=== PATIENT | female | born 1990 | race African-American/Black ===

== ENCOUNTER 2022-12-29 23:51 | Inpatient (IN) | payer SELFPAY ==
[~2022-12-29] VITALS: Ht 180 cm; Wt 110.0 kg
[2022-12-30] MEDS ORDERED: HYDRALAZINE 20MG/ML VIAL IV PRN ×3 (01:30)
[2022-12-30] MEDS ORDERED: MAGNESIUM 4 G PREMIX 100 ML IV ONE (01:30)
[2022-12-30] MEDS: LACTATED RINGERS 1,000 ML IV SCH ×3 (02:34→16:55)
[2022-12-30 02:38] LABS: HEMATOCRIT. 37.7 % (36.0-48.0); HEMOGLOBIN. 12.9 g/dL (12.0-16.0); MEAN CORPUSCULAR HEMOGLOBIN 31.9 pg (28.0-32.0); MEAN CORPUSCULAR VOLUME 93.2 fL (81.0-99.0); MEAN PLATELET VOLUME 9.1 fl (7.4-10.4); PLATELET 141 x1000/uL (130-400); RED BLOOD CELL COUNT 4.04 mill/uL (4.2-5.4); RED CELL DISTRIBUTION WIDTH 14.1 % (11.6-14.6)
[2022-12-30 02:47] LABS: CHLORIDE 113 mEq/L (98-107)
[2022-12-30 02:58] LABS: D-DIMER 3.23 mg/L FEU (<0.50); INR 0.9; PARTIAL THROMBOPLASTIN TIME 26.6 sec (23.4-31.0); PROTHROMBIN TIME 9.8 sec (9.6-11.0)
[2022-12-30] MEDS: MAGNESIUM 20 G PREMIX (L & D) 500 ML IV SCH ×3 (03:00→22:05)
[2022-12-30 03:02] LABS: CLARITY URINE CLEAR (CLEAR); COLOR URINE YELLOW (YELLOW); KETONES URINE NEGATIVE (NEGATIVE); LEUKOCYTE ESTERASE URINE NEGATIVE (NEGATIVE); NITRITE URINE NEGATIVE (NEGATIVE); OCCULT BLOOD URINE 2+ (NEGATIVE); PROTEIN URINE 4+ (NEGATIVE); SPECIFIC GRAVITY URINE 1.013 (1.005-1.030); UROBILINOGEN URINE 0.2 E.U./dL (0.2-1.0)
[2022-12-30 03:22] LABS: HEPATITIS B SURFACE ANTIGEN NEGATIVE
[2022-12-30 03:25] LABS: *AMPHETAMINES SCREEN URINE NEGATIVE (NEGATIVE); *BARBITURATES SCREEN URINE NEGATIVE (NEGATIVE); *BENZODIAZEPINES SCREEN URINE NEGATIVE (NEGATIVE); *COCAINE SCREEN URINE NEGATIVE (NEGATIVE); CANNABINOID URINE SCREEN NEGATIVE (NEGATIVE); METHADONE URINE SCREEN NEGATIVE (NEGATIVE); OPIATES URINE SCREEN NEGATIVE (NEGATIVE); PHENCYCLIDINE URINE SCREEN NEGATIVE (NEGATIVE)
[2022-12-30] MEDS ORDERED: NIFE20CA PO (05:29)
[2022-12-30] MEDS ORDERED: PNV1TABL61 PO (05:29)
[2022-12-30] MEDS ORDERED: METH500T22 PO (05:29)
[2022-12-30] MEDS ORDERED: LABE200T9 PO (05:29)
[2022-12-30] MEDS ORDERED: BETAMETHASONE ACET/BETAMET 30 MG/5 ML VIAL IM STA (09:29)
[2022-12-30 09:40] LABS: NUCLEATED RED BLOOD CELLS 3 /100 WBC; PLATELET ESTIMATE NORMAL
[2022-12-30] MEDS: ACETAMINOPHEN 500MG TABLET PO PRN (10:01)
[2022-12-30] MEDS: LABETALOL HCL 200MG TABLET PO SCH ×2 (10:15→17:58)
[2022-12-30 10:21] LABS: BASOPHILS % 0.4 % (0.0-2.0); EOSINOPHILS % 1.1 % (0.0-5.0); HEMATOCRIT. 39.2 % (36.0-48.0); HEMOGLOBIN. 13.5 g/dL (12.0-16.0); LYMPHOCYTES % 33.4 % (20.0-50.0); MEAN CORPUSCULAR HEMOGLOBIN 32.1 pg (28.0-32.0); MEAN CORPUSCULAR VOLUME 92.9 fL (81.0-99.0); MEAN PLATELET VOLUME 9.7 fl (7.4-10.4); NEUTROPHILS % 52.1 % (40.0-76.0); PLATELET 159 x1000/uL (130-400); RED BLOOD CELL COUNT 4.22 mill/uL (4.2-5.4); RED CELL DISTRIBUTION WIDTH 14.2 % (11.6-14.6)
[2022-12-30 10:27] LABS: CHLORIDE 110 mEq/L (98-107)
[2022-12-30 10:34] LABS: D-DIMER 3.32 mg/L FEU (<0.50); INR 0.9; PARTIAL THROMBOPLASTIN TIME 27.3 sec (23.4-31.0); PROTHROMBIN TIME 9.8 sec (9.6-11.0)
[2022-12-30 16:25] LABS: CLARITY URINE CLEAR (CLEAR); COLOR URINE YELLOW (YELLOW); KETONES URINE NEGATIVE (NEGATIVE); LEUKOCYTE ESTERASE URINE NEGATIVE (NEGATIVE); NITRITE URINE NEGATIVE (NEGATIVE); OCCULT BLOOD URINE 1+ (NEGATIVE); PH URINE 6.5 (4.5-8.0); PROTEIN URINE 3+ (NEGATIVE); SPECIFIC GRAVITY URINE 1.019 (1.005-1.030); UROBILINOGEN URINE 0.2 E.U./dL (0.2-1.0)
[2022-12-30] MEDS: HYDRALAZINE 20MG/ML VIAL IV NR ×2 (17:20→17:43)
[2022-12-30] MEDS ORDERED: MORPHINE SULFATE/PF 1MG/ML 10ML AMP ONE (19:23)
[2022-12-30] MEDS ORDERED: METOCLOPRAMIDE HCL 10MG/2ML VIAL ONE (19:37)
[2022-12-30] MEDS ORDERED: DEXAMETHASONE 4MG/ML 1ML VIAL ONE (19:37)
[2022-12-30] MEDS ORDERED: OXYTOCIN 10 UNITS/ML 1ML ONE (19:37)
[2022-12-30] MEDS ORDERED: ONDANSETRON HCL 4MG/2ML INJ ONE (19:37)
[2022-12-30] MEDS ORDERED: CEFAZOLIN SODIUM 1000MG/VIAL ONE (19:38)
[2022-12-30] MEDS ORDERED: KETOROLAC 60MG/2ML VIAL IM ONE (21:12)
[2022-12-30] MEDS ORDERED: NALOXONE HCL 0.4 MG/ML 1ML VIAL IV PRN (21:15)
[2022-12-30] MEDS ORDERED: FENTANYL CITRATE/PF 50MCG/ML 2ML VIAL IV PRN (21:15)
[2022-12-30] MEDS ORDERED: KETOROLAC 30MG/ML VIAL IV SCH (21:15)
[2022-12-30] MEDS ORDERED: BISACODYL 10MG SUPP PR PRN (22:00)
[2022-12-30] MEDS ORDERED: ONDANSETRON HCL 4MG/2ML INJ IV PRN (22:00)
[2022-12-30] MEDS ORDERED: IBUPROFEN 400MG TABLET PO PRN (22:00)
[2022-12-30] MEDS ORDERED: DEXT 5%/LACTATED RINGERS 1,000 ML IV SCH (22:00)
[2022-12-30] MEDS ORDERED: RHO(D) IMMUNE GLOBULIN 300 MCG/SYR IM PRN (22:00)
[2022-12-30] MEDS ORDERED: OXYTOCIN 30 UNITS/500ML NS PMX 500 ML IV SCH (22:00)
[2022-12-30] MEDS ORDERED: HEMORRHOIDAL SUPP PR PRN (22:00)
[2022-12-31] VITALS (10 sets, daily range): BP systolic 129–158; BP diastolic 84–98
[2022-12-31] MEDS: MAGNESIUM 20 G PREMIX (L & D) 500 ML IV SCH ×2 (00:16→09:49)
[2022-12-31] MEDS: LABETALOL HCL 100MG TABLET PO SCH ×3 (00:53→19:19)
[2022-12-31] MEDS: LACTATED RINGERS 1,000 ML IV SCH (06:49)
[2022-12-31 07:08] LABS: BASOPHILS % 0.1 % (0.0-2.0); HEMATOCRIT. 40.4 % (36.0-48.0); HEMOGLOBIN. 13.9 g/dL (12.0-16.0); LYMPHOCYTES % 12.6 % (20.0-50.0); MEAN CORPUSCULAR HEMOGLOBIN 32.3 pg (28.0-32.0); MEAN CORPUSCULAR VOLUME 94.2 fL (81.0-99.0); MONOCYTES % 6.4 % (2.0-8.0); NEUTROPHILS % 80.9 % (40.0-76.0); RED BLOOD CELL COUNT 4.29 mill/uL (4.2-5.4)
[2022-12-31 08:47] LABS: PLATELET 170 x1000/uL (130-400)
[2022-12-31] MEDS: MAGNESIUM/ALUMINUM HYDROXIDE/SIMETHICONE 30ML UDC PO SCH ×2 (09:00→21:00)
[2022-12-31] MEDS: LABETALOL HCL 200MG TABLET PO SCH (17:00)
[2023-01-01] MEDS: LABETALOL HCL 100MG TABLET PO SCH ×3 (02:59→19:05)
[2023-01-01 05:20] VITALS: BP 157/101
[2023-01-01] MEDS: NIFEDIPINE XL 30MG TAB PO SCH (05:34)
[2023-01-01 07:30] VITALS: BP 166/105
[2023-01-01] MEDS: IBUPROFEN 800MG TABLET PO PRN ×2 (07:36→20:52)
[2023-01-01] MEDS: MAGNESIUM/ALUMINUM HYDROXIDE/SIMETHICONE 30ML UDC PO SCH ×4 (08:55→20:53)
[2023-01-01] MEDS: FERROUS SULFATE 325MG TABLET PO SCH ×5 (08:55→20:53)
[2023-01-01] MEDS: PRENATAL VIT/FE FUMARATE/FA TABLET PO SCH (08:55)
[2023-01-01] MEDS: HYDROCODONE/ACETAMINOPHEN 5/325MG TABLET PO PRN (11:25)
[2023-01-01 12:30] VITALS: BP 162/108
[2023-01-01 16:45] VITALS: BP 156/102
[2023-01-01 19:05] VITALS: BP 158/96
[2023-01-02] VITALS (7 sets, daily range): BP systolic 135–166; BP diastolic 85–100
[2023-01-02] MEDS: HYDROCODONE/ACETAMINOPHEN 5/325MG TABLET PO PRN (00:36)
[2023-01-02] MEDS: LABETALOL HCL 100MG TABLET PO SCH (03:13)
[2023-01-02] MEDS: IBUPROFEN 800MG TABLET PO PRN ×4 (03:14→17:20)
[2023-01-02] MEDS: NIFEDIPINE XL 30MG TAB PO SCH (05:07)
[2023-01-02] MEDS: DIPHENHYDRAMINE 25MG CAPSULE PO PRN ×2 (05:07→20:50)
[2023-01-02] MEDS ORDERED: LABETALOL HCL 200MG TABLET PO SCH (09:00)
[2023-01-02] MEDS: PRENATAL VIT/FE FUMARATE/FA TABLET PO SCH (09:03)
[2023-01-02] MEDS: FERROUS SULFATE 325MG TABLET PO SCH ×2 (09:03→17:30)
[2023-01-02] MEDS: LABETALOL HCL 200MG TABLET PO SCH (09:03)
[2023-01-02] MEDS: ACETAMINOPHEN 500MG TABLET PO PRN (13:00)
[2023-01-02] MEDS: MAGNESIUM/ALUMINUM HYDROXIDE/SIMETHICONE 30ML UDC PO SCH (20:50)
[2023-01-03] VITALS: BP 150/94
[2023-01-03] MEDS: IBUPROFEN 800MG TABLET PO PRN ×2 (02:14→07:46)
[2023-01-03] MEDS: LABETALOL HCL 200MG TABLET PO SCH ×2 (02:19→10:28)
[2023-01-03 04:00] VITALS: BP 162/101
[2023-01-03 04:30] VITALS: BP 148/97
[2023-01-03 07:20] VITALS: BP 163/109
[2023-01-03] MEDS: PRENATAL VIT/FE FUMARATE/FA TABLET PO SCH (07:46)
[2023-01-03] MEDS: MAGNESIUM/ALUMINUM HYDROXIDE/SIMETHICONE 30ML UDC PO SCH (07:46)
[2023-01-03] MEDS: NIFEDIPINE XL 30MG TAB PO SCH (07:47)
[2023-01-03] MEDS ORDERED: NIFEDIPINE XL 30MG TAB PO SCH (20:00)
== END 2023-01-03 10:34 | disposition left against medical advice (07) | DRG 540 ==
LOC: OBSVTOIN 23:51 → 8 EST LDRP 23:51 → 8EST 12-31 00:01
PROVIDERS: ADMIT Obstetrics & Gynecology; ATTEND Obstetrics & Gynecology
PROC: 10D00Z1 Extraction of Products of Conception, Low, Open Approach (ICD-10-PCS; principal; 2022-12-30)
DX: O13.4 Gestational [pregnancy-induced] hypertension without significant proteinuria, complicating childbirth (principal); O99.214 Obesity complicating childbirth; O34.211 Maternal care for low transverse scar from previous cesarean delivery; Z20.822 Contact with and (suspected) exposure to COVID-19; Z37.0 Single live birth; Z3A.31 31 weeks gestation of pregnancy; Z53.29 Procedure and treatment not carried out because of patient's decision for other reasons
CPT/HCPCS: 36415; 76805; 76818; 80051; 80053; 80305; 80359; 81003; 83735; 84550; 85025; 85379; 85384; 86592; 86644; 86703; 86762; 86850; 86900; 86920; 87340; 87426; 88307; 99281; J0360; J0690; J0702; J1100; J1885; J2274; J2405; J2765; J3475; J7120; J7121; Q0163; A4315; J2590